=== PATIENT | female | born 1995 | race Caucasian/White ===

== ENCOUNTER 2016-11-16 02:42 | Emergency (ER) | payer OTHER, MEDICAID ==
[~2016-11-16 02:42] MED LIST: OXYC1SOL5 PO; PREN0.01 PO
[2016-11-16 02:43] VITALS: BP 113/78; PULSE 93; RESP 16; TEMP 98.9; O2SAT 100
--- NOTE | 2016-11-16 04:39 | PD ---
HPI Chief Complaint: Injury Time Seen by Provider: 04:39 Travel History International Travel<30 days: No Contact w/Intl Traveler<30days: No Traveled to known affect area: No History of Present Illness HPI 21-year-old female presents versus part of her evaluation left hand pain. Patient states that she "jammed her hand" while playing with her kids. . She noticed swelling this morning and pain with movement or palpation. Pain is constant, throbbing. No alterations in sensation. Denies IV drug use. No recent illnesses, fever, or chills. She has no other symptoms to report. [facility] Past Medical History Medical History: Denies Significant Hx Diminished Hearing: No ?: Not Past Surgical History Appendectomy: Yes Social History Alcohol Use: No Tobacco Use: Yes (1/2PPD ) Substance Use: Yes (MARIJUANA ) Allergies-Medications (Allergen,Severity, Reaction): Coded Allergies: No Known Allergies (Unverified , 09/02/14) Reported Meds & Prescriptions Reported Meds & Active Scripts Active Naprosyn (Naproxen) 500 Mg Tab 500 Mg PO BID PRN Review of Systems Except as stated in HPI: all other systems reviewed are Neg Physical Exam Narrative GENERAL: Thin female patient comes seemingly under the influence but in no acute distress SKIN: Focused skin assessment warm/dry. She does have track edouard on the left upper extremity in the antecubital and wrist. no abscess. No erythema. HEAD: Normocephalic. EYES: No scleral icterus. No injection or drainage. NECK: Supple, trachea midline. No JVD or lymphadenopathy. CARDIOVASCULAR: Regular rate and rhythm without murmurs, gallops, or rubs. RESPIRATORY: Breath sounds equal bilaterally. No accessory muscle use. GASTROINTESTINAL: Abdomen soft, non-tender, nondistended. MUSCULOSKELETAL: No cyanosis, area of the dorsal aspect of the left hand is edematous. There is no fluctuance. No erythema or induration. Patient can flex and extend the digits. Cap refill within normal limits. Distal pulses are palpable.. BACK: Nontender without obvious deformity. No CVA tenderness. Data Data Last Documented VS Vital Signs Date Time Temp Pulse Resp B/P Pulse Ox O2 Delivery O2 Flow Rate FiO2 11/16/16 02:55 16 11/16/16 02:43 98.9 93 113/78 100 Room Air Orders Hand, Complete (Rth3oky) (11/16/16 ) David Bandage (11/16/16 05:47) Ketorolac Inj (Toradol Inj) (11/16/16 06:00) MDM Medical Decision Making Medical Screen Exam Complete: Yes Emergency Medical Condition: Yes Medical Record Reviewed: Yes Differential Diagnosis Fracture versus sprain versus contusion versus abscess versus cellulitis Narrative Course 21-year-old female presents for evaluation of left hand pain and swelling of the dorsum. Patient believes that she jammed her hand but cannot recall a specific incident. Believes that was all she was resting with her kids. She adamantly denies IV drug use however there are areas concerning for track edouard on the left upper extremity. The edema of the dorsal hand is without any induration or fluctuation and consistent with an injury. X-ray imaging is without any acute bony abnormality. Patient is counseled on care and agrees to return immediately with any acute worsening of symptoms. Diagnosis Primary Impression: Sprain of hand, left Qualified Code: S63.92XA - Sprain of hand, left, initial encounter Referrals: Primary Care Physician Patient Instructions: General Instructions, Hand Sprain (ED) Additional Instructions: Wrap for compression Ice and elevate to reduce pain and swelling Follow-up with a primary care provider Return immediately with any acute worsening symptoms Med/Other Pt SpecificInfo: Prescription(s) given Scripts Naproxen (Naprosyn)500 Mg [id number] Mg PO BID PRN (PAIN SCALE 1 TO 10) #30 TAB Ref 0 Prov:Tori Santizo 11/16/16 Disposition: 01 DISCHARGE HOME Condition: Stable Tori Santizo Nov 16, 2016 04:39
--- NOTE | 2016-11-16 05:37 | RADRPT ---
EXAM DATE/TIME: 11/16/2016 04:31 [facility] COMPARISON: No previous studies available for comparison. INDICATIONS : Swelling and pain to left hand, unknown injury. MEDICAL HISTORY : None. SURGICAL HISTORY : None. ENCOUNTER: Initial ACUITY: 2 days PAIN SCORE: 6/10 LOCATION: Left Hand FINDINGS: Three view examination of the left hand demonstrates no soft tissue swelling, dislocation, or fractur e. The carpal bones appear intact. The interphalangeal and metacarpophalangeal joints are intact. Bony mineralization is normal. CONCLUSION: Unremarkable examination of the left hand. Graham Soto MD on November 16, 2016 at 5:35 Board Certified Radiologist. This report was verified electronically.
[2016-11-16] MEDS ORDERED: NAPR500 PO (05:49)
[2016-11-16] MEDS ORDERED: KETOROLAC TROMETHAMINE 60 MG/2 ML (IM) VIAL IM ONE (06:00)
== END 2016-11-16 06:14 | disposition home or self-care (01) ==
LOC: NEPD 02:42
DX: S63.92XA Sprain of unspecified part of left wrist and hand, initial encounter (principal); X58.XXXA Exposure to other specified factors, initial encounter; F17.200 Nicotine dependence, unspecified, uncomplicated; F12.10 Cannabis abuse, uncomplicated
CPT/HCPCS: 73130; 99283

== ENCOUNTER 2017-02-14 21:34 | Emergency (ER) | payer OTHER, MEDICAID ==
[~2017-02-14] VITALS: Ht 152.4 cm; Wt 45.5 kg
[~2017-02-14 21:34] MED LIST changes: +NAPR500 PO; -OXYC1SOL5 PO; -PREN0.01 PO
[2017-02-14 21:36] VITALS: BP 113/70; PULSE 61; RESP 15; TEMP 98; O2SAT 96
--- NOTE | 2017-02-14 23:02 | PD ---
HPI Chief Complaint: Oral / Dental Pain or Problem Time Seen by Provider: 22:49 Travel History International Travel<30 days: No Contact w/Intl Traveler<30days: No Traveled to known affect area: No History of Present Illness HPI 21-year-old white female presents to emergency department with complaints of dental pain. She states that she's been having pain in her right upper maxilla for the last several days. She went to see the dentist today who gave her a prescription for amoxicillin. She states the pain is gone worse and is radiating up into her ear. She denies any fever but feels hot. She states that the pain causes her to have a sore throat, headache and right facial pain. She denies any nausea vomiting. No bowel pain or diarrhea. PFSH Past Medical History Diminished Hearing: No ?: Not Past Surgical History Appendectomy: Yes Social History Alcohol Use: No Tobacco Use: Yes (1/2PPD ) Substance Use: Yes (MARIJUANA ) Allergies-Medications (Allergen,Severity, Reaction): Coded Allergies: No Known Allergies (Unverified , 09/02/14) Reported Meds & Prescriptions Reported Meds & Active Scripts Active Naprosyn (Naproxen) 500 Mg Tab 500 Mg PO BID PRN Review of Systems General / Constitutional: No: Fever Eyes: No: Visual changes HENT: Positive: Sore Throat, Dental Difficulties, Earache, No: Headaches, Neck Pain, Gingival Bleeding, Ear Discharge Cardiovascular: No: Chest Pain or Discomfort Respiratory: Positive: Cough, No: Shortness of Breath Gastrointestinal: No: Abdominal Pain Genitourinary: No: Dysuria Musculoskeletal: No: Pain Skin: No Rash Neurologic: No: Weakness Psychiatric: No: Depression Endocrine: No: Polydipsia Hematologic/Lymphatic: No: Easy Bruising Physical Exam Narrative GENERAL: Well-developed, well-nourished in no acute distress. Nontoxic appearing. HEAD: Normocephalic, atraumatic. EYES: Pupils equal round and reactive. Extraocular motions intact. No scleral icterus. No injection or drainage. ENT: TMs clear without erythema. The external auditory canals clear. Nose: clear . Posterior pharynx is pink and moist. No tonsillar edema or exudate. Uvula midline. Airway patent. The patient has diffuse periodontal disease and diffuse dental caries. She points to tooth #1 as a source of her pain. There is a large dental carry. Mild erythema. Mild edema. NECK: Trachea midline.Supple, nontender, moves head freely. No central bony tenderness or spasm. CARDIOVASCULAR: Regular rate and rhythm without murmurs, gallops, or rubs. RESPIRATORY: Clear to auscultation. Breath sounds equal bilaterally. No wheezes , rales, or rhonchi. GASTROINTESTINAL: Abdomen soft, non-tender, nondistended. No hepato-splenomegaly , or palpable masses. No guarding. EXTREMITIES: No clubbing, cyanosis, or edema. No joint tenderness, effusion, or edema noted. BACK: Nontender without deformity or crepitance. No flank tenderness. Data Data Last Documented VS Vital Signs Date Time Temp Pulse Resp B/P (MAP) Pulse Ox O2 Delivery O2 Flow Rate FiO2 02/14/17 21:36 98.0 61 15 113/70 (84) 96 Room Air MDM Medical Decision Making Medical Screen Exam Complete: Yes Emergency Medical Condition: Yes Medical Record Reviewed: Yes Differential Diagnosis MDM: Moderate Differential diagnoses: Dental abscess, dental caries, osteitis, cellulitis Narrative Course Patient states that she is taking [id number] ibuprofen and amoxicillin without relief. She was seen by a dentist today. The patient will be given 1 Lortab here and a prescription for Ultram and clindamycin. Diagnosis Primary Impression: Dental caries Additional Impression: Dentalgia Patient Instructions: Narcotic given in the ED, General Instructions Additional Instructions: Rest. [place] gargles. [place] oil on cotton balls. 3 Advil every 6 hours. Clindamycin and Ultram. follow-up with a dentist as soon as possible. And return to the ER if any problems. Med/Other Pt SpecificInfo: Prescription(s) given Disposition: 01 DISCHARGE HOME Condition: Stable Hans Muhammad Feb 14, 2017 23:02
[2017-02-14] MEDS ORDERED: CLIN150 PO (23:04)
[2017-02-14] MEDS ORDERED: TRAM50 PO (23:04)
[2017-02-14] MEDS ORDERED: ACETAMINOPHEN/HYDROcodone 325 MG/5 MG TAB PO ONE (23:15)
[2017-02-14] MEDS ORDERED: CLINDAMYCIN 150 MG CAP PO ONE (23:15)
== END 2017-02-14 23:29 | disposition home or self-care (01) ==
LOC: NEPK 21:34
DX: K02.9 Dental caries, unspecified (principal); F17.210 Nicotine dependence, cigarettes, uncomplicated
CPT/HCPCS: 99284